=== PATIENT | male | born 1975 | race Caucasian/White ===

== ENCOUNTER 2021-07-05 20:28 | Emergency (ER) | payer MEDICAID ==
[~2021-07-05] VITALS: Ht 182.9 cm; Wt 127.0 kg
[2021-07-05 20:34] VITALS: BP 149/99
[2021-07-05 21:07] LABS: Basophils # (auto) 0 10 ^3/uL (0-0.2); Basophils % (auto) 0.2 % (0.0-2.0); Eosinophils # (auto) 0 10 ^3/uL (0-0.8); Hematocrit 46.2 % (41.0-53.0); Hemoglobin 16.2 g/dL (13.5-17.5); Lymphocytes # (auto) 0.7 10 ^3/uL (0.4-5.4); Lymphocytes % (auto) 8.7 % (10.0-50.0); Mean Corpuscular Hemoglobin 29.7 pg (28.0-32.0); Mean Corpuscular Volume 84.7 fL (80.0-100.0); Monocytes # (auto) 0.2 10 ^3/uL (0-1.3); Monocytes % (auto) 2.9 % (0.0-12.0); Neutrophils % (auto) 88.2 % (37.0-80.0); Nucleated Red Blood Cells % 0.2 %; Red Blood Cells 5.46 10^6/uL (4.5-5.90); Red Cell Distribution Width 14.2 % (11.8-14.3)
[2021-07-05 21:25] LABS: Albumin 3.8 g/dL (3.4-5.0); BUN/Creatinine Ratio 12.1; Potassium 3.8 mmol/L (3.5-5.1)
[2021-07-05 21:28] LABS: Bilirubin, Total 0.3 mg/dL (0.2-1.0)
[2021-07-05] MEDS ORDERED: [UNRECOGNIZED DRUG - CODE] PO (23:09)
[2021-07-05] MEDS ORDERED: OMEP20TA PO (23:09)
== END 2021-07-06 01:54 | disposition home or self-care (01) ==
LOC: ER 20:28 → EDBD 20:28 → ER 23:42
DX: K80.20 Calculus of gallbladder without cholecystitis without obstruction (principal)
CPT/HCPCS: 36415; 74176; 76705; 80053; 83605; 83690; 84484; 85025